=== PATIENT | male | born 1980 | race African-American/Black ===

== ENCOUNTER 2024-05-13 14:49 | Emergency (ER) | payer BC ==
[~2024-05-13] VITALS: Ht 182.9 cm; Wt 111.1 kg
[2024-05-13 15:07] VITALS: BP_SYST 137; PULSE 77; RESP 15; TEMP 97.8; O2SAT 98
[2024-05-13] MEDS ORDERED: IBUP-1971 PO (15:10)
[2024-05-13] MEDS ORDERED: CLIN-142 PO (15:10)
[2024-05-13] MEDS: CLINDAMYCIN HCL 150 MG CAPSULE PO ONE (15:23)
[2024-05-13 15:41] VITALS: BP_SYST 137; PULSE 77; RESP 15; TEMP 97.8; O2SAT 98
== END 2024-05-13 15:30 | disposition home or self-care (01) ==
LOC: SED 14:49
DX: K12.2 Cellulitis and abscess of mouth (principal); Z79.899 Other long term (current) drug therapy; Z79.2 Long term (current) use of antibiotics
CPT/HCPCS: 99283